=== PATIENT | female | born 1990 | race Caucasian/White ===

== ENCOUNTER 2017-07-10 20:55 | Emergency (ER) | payer BC, MEDICAID ==
[~2017-07-10] VITALS: Ht 152.4 cm; Wt 86.4 kg
[~2017-07-10 20:55] MED LIST: Docusate Sod/Senna PO; IBUP600 PO; PERC5TAB12 PO; PREN0.01 PO
[2017-07-10 20:59] VITALS: BP 149/84; PULSE 116; RESP 14; TEMP 99.4; O2SAT 99
[2017-07-10 23:31] LABS: BACTERIA, URINE RARE /hpf; BILIRUBIN, URINE NEG (NEG); BLOOD, URINE NEG (NEG); GLUCOSE,URINE NEG (NEG); KETONE, URINE NEG (NEG); NITRITE,URINE NEG (NEG); SQUAMOUS EPITHELIAL CELL URINE 3 /hpf (0-5); URINE COLOR LIGHT-YELLOW (YELLW/STRAW); URINE LEUKOCYTE ESTERASE NEG (NEG)
[2017-07-11] MEDS ORDERED: prenatal vitamin PO (01:38)
[2017-07-11 01:56] LABS: AUTOMATED NEUTROPHIL # 10.7 TH/MM3 (1.8-7.7); BASOPHIL % 0.2 % (0.0-2.0); EOSINOPHIL # 0.2 TH/MM3 (0-0.4); EOSINOPHIL % 1.4 % (0.0-4.0); HEMATOCRIT 42.8 % (35.0-46.0); HEMOGLOBIN 14.4 GM/DL (11.6-15.3); LYMPH % 26.5 % (9.0-44.0); LYMPHOCYTE # 4.3 TH/MM3 (1.0-4.8); MEAN CELL VOLUME 85.5 FL (80.0-100.0); MEAN CORPUSCULAR HEMOGLOBIN 28.8 PG (27.0-34.0); MEAN CORPUSCULAR HGB CONC 33.7 % (32.0-36.0); MEAN PLATELET VOLUME 8.1 FL (7.0-11.0); MONO % 6.6 % (0.0-8.0); MONOCYTE # 1.1 TH/MM3 (0-0.9); NEUT % 65.3 % (16.0-70.0); PLATELET COUNT 316 TH/MM3 (150-450); RED CELL DISTRIBUTION WIDTH 13.4 % (11.6-17.2); WHITE BLOOD COUNT 16.3 TH/MM3 (4.0-11.0)
[2017-07-11 02:37] LABS: BICARBONATE 24.4 MEQ/L (21.0-32.0); CALCIUM 8.8 MG/DL (8.5-10.1); CREATININE 0.76 MG/DL (0.50-1.00)
--- NOTE | 2017-07-11 04:13 | PD ---
HPI Chief Complaint: Related Problem Time Seen by Provider: 04:10 Travel History International Travel<30 days: No Contact w/Intl Traveler<30days: No Traveled to known affect area: No History of Present Illness HPI 27-year-old female presents to the emergency department for complaint of intermittent vaginal spotting. Patient reports that she is approximately 8 weeks . Last menstrual period was May 25, 2017. Patient has not followed up with an MOLD BUILDER. Patient is O+ blood type. Patient's had no dysuria frequency urgency hematuria flank pain or vaginal discharge. Patient states no current spotting. Patient is not passed any clots or tissue. Patient rates discomfort as mild to moderate present but currently is mild. Patient denies any fever chills nausea vomiting. Patient denies any injury or fall. Patient rates current discomfort 0/10 intensity. PFSH Past Medical History Narrative Medical Ab0, , O+, alpha thalassemia; nursing notes reviewed Medical History: Denies Significant Hx Cancer: No Cardiovascular Problems: No Diabetes: No Diminished Hearing: No Psychiatric: No Immunizations Current: Yes Seizures: No Thyroid Disease: No Ulcer: No Tetanus Vaccination: < 5 Years Influenza Vaccination: No ?: : 2 Para: 1 Past Surgical History Section: Yes Social History Alcohol Use: Yes (occ) Tobacco Use: No Substance Use: No Allergies-Medications (Allergen,Severity, Reaction): Coded Allergies: penicillin G (Unverified Allergy, Severe, HIVES, SWELLING, 01/15/17) Reported Meds & Prescriptions Reported Meds & Active Scripts Active Reported [ vitamin] 1 Tab PO DAILY Review of Systems Except as stated in HPI: all other systems reviewed are Neg HENT: No: Congestion Cardiovascular: No: Chest Pain or Discomfort Respiratory: No: Shortness of Breath Gastrointestinal: No: Nausea, Vomiting, Abdominal Pain Genitourinary: Positive: Pelvic Pain (mild intermittent), Vaginal Bleeding ( spotting), No: Dysuria, Discharge Musculoskeletal: No: Myalgias, Arthralgias Skin: No Rash Neurologic: No: Weakness, Dizziness, Syncope Psychiatric: No: Anxiety Hematologic/Lymphatic: No: Easy Bruising Physical Exam Narrative GENERAL: Well-developed well-nourished female in no acute distress no respiratory distress SKIN: Warm and dry. HEAD: Atraumatic. Normocephalic. EYES: Pupils equal and round. No scleral icterus. No injection or drainage. ENT: No nasal bleeding or discharge. Mucous membranes pink and moist. NECK: Trachea midline. No JVD. CARDIOVASCULAR: Regular rate and rhythm. RESPIRATORY: No accessory muscle use. Clear to auscultation. Breath sounds equal bilaterally. GASTROINTESTINAL: Abdomen soft, non-tender, nondistended. Hepatic and splenic margins not palpable. Pelvic exam: Normal external exam no induration no erythema no lesions; speculum exam no blood no clots no tissue cervical os is closed; bimanual exam no cervical motion tenderness os closed no adnexal mass or tenderness mild uterine enlargement. MUSCULOSKELETAL: Extremities without clubbing, cyanosis, or edema. No obvious deformities. NEUROLOGICAL: Awake and alert. No obvious cranial nerve deficits. Motor grossly within normal limits. Five out of 5 muscle strength in the arms and legs. Normal speech. PSYCHIATRIC: Appropriate mood and affect; insight and judgment normal. Data Data Last Documented VS Vital Signs Date Time Temp Pulse Resp B/P (MAP) Pulse Ox O2 Delivery O2 Flow Rate FiO2 07/11/17 04:30 94 16 121/74 (90) 98 Room Air 07/10/17 20:59 99.4 Orders Orders Beta Hcg (Quant/Titer) (07/10/17 21:08) Complete Blood Count With Diff (07/10/17 21:08) Basic Metabolic Panel (Bmp) (07/10/17 21:08) Urinalysis - C+S If Indicated (07/10/17 21:08) Ed Urine Pregnancytest Poc (07/10/17 21:08) Ed Discharge Order (07/11/17 04:10) Labs Laboratory Tests Test 07/10/17 23:00 07/11/17 01:40 07/11/17 02:10 Urine Color LIGHT-YELLOW Urine Turbidity CLEAR Urine pH 6.0 Urine Specific [place] 1.004 Urine Protein NEG mg/dL Urine Glucose (UA) NEG mg/dL Urine Ketones NEG mg/dL Urine Occult Blood NEG Urine Nitrite NEG Urine Bilirubin NEG Urine Urobilinogen LESS THAN 2.0 MG/DL Urine Leukocyte Esterase NEG Urine RBC 1 /hpf Urine WBC 1 /hpf Urine Squamous Epithelial Cells 3 /hpf Urine Bacteria RARE /hpf Microscopic Urinalysis Comment CULT NOT INDICATED White Blood Count 16.3 TH/MM3 Red Blood Count 5.00 MIL/MM3 Hemoglobin 14.4 GM/DL Hematocrit 42.8 % Mean Corpuscular Volume 85.5 FL Mean Corpuscular Hemoglobin 28.8 PG Mean Corpuscular Hemoglobin Concent 33.7 % Red Cell Distribution Width 13.4 % Platelet Count 316 TH/MM3 Mean Platelet Volume 8.1 FL Neutrophils (%) (Auto) 65.3 % Lymphocytes (%) (Auto) 26.5 % Monocytes (%) (Auto) 6.6 % Eosinophils (%) (Auto) 1.4 % Basophils (%) (Auto) 0.2 % Neutrophils # (Auto) 10.7 TH/MM3 Lymphocytes # (Auto) 4.3 TH/MM3 Monocytes # (Auto) 1.1 TH/MM3 Eosinophils # (Auto) 0.2 TH/MM3 Basophils # (Auto) 0.0 TH/MM3 CBC Comment DIFF FINAL Differential Comment Blood Urea Nitrogen 9 MG/DL Creatinine 0.76 MG/DL Random Glucose 104 MG/DL Calcium Level 8.8 MG/DL Sodium Level 139 MEQ/L Potassium Level 3.9 MEQ/L Chloride Level 107 MEQ/L Carbon Dioxide Level 24.4 MEQ/L Anion Gap 8 MEQ/L Estimat Glomerular Filtration Rate 93 ML/MIN Human Chorionic Gonadotropin, Quant 61695 MIU/ML MDM Medical Decision Making Medical Screen Exam Complete: Yes Emergency Medical Condition: Yes Medical Record Reviewed: Yes Interpretation(s) hcg; 82162 POC HCG: POSITIVE ua: GROSSLY WN CBC & BMP Diagram 07/11/17 01:40 07/11/17 02:10 Calcium Level 8.8 Vital Signs Date Time Temp Pulse Resp B/P (MAP) Pulse Ox O2 Delivery O2 Flow Rate FiO2 07/11/17 04:30 94 16 121/74 (90) 98 Room Air 07/10/17 20:59 99.4 116 14 149/84 (105) 99 Differential Diagnosis , ectopic , threatened AB, UTI, anemia Narrative Course Specimens collected and sent for resulting pelvic exam is nontender point-of- care hCG is positive Bedside ultrasound after informed verbal consent using a curvilinear probe and saddle transverse plane patient was identified to have single IUP with heart rate of 136 Urinalysis values found to be within normal range; hemoglobin stable Patient is asymptomatic in the emergency department stable for outpatient management is encouraged to follow-up with MOLD BUILDER take vitamins and recommend repeat quantitative hCG in 48 hours Diagnosis Primary Impression: Additional Impression: Threatened spontaneous Referrals: Tubing Machine Operator 2 days Patient Instructions: General Instructions Additional Instructions: Take vitamins Follow-up with welfare manager Repeat quantitative hormone level in 48 hours Return to the emergency department for any concerns or change in condition Increase fluid hydration May take acetaminophen/Tylenol for discomfort or fever 100.4F or greater Disposition: 01 DISCHARGE HOME Condition: Stable Neisha Retana MD Jul 11, 2017 04:13
[2017-07-11 04:30] VITALS: BP 121/74; PULSE 94; RESP 16; O2SAT 98
== END 2017-07-11 04:36 | disposition home or self-care (01) ==
LOC: NEPC 20:55
DX: O20.0 Threatened abortion (principal); Z3A.08 8 weeks gestation of pregnancy
CPT/HCPCS: 80048; 81001; 84702; 84703; 85025; 99283

== ENCOUNTER 2018-02-13 17:27 | Inpatient (IN) ==
--- NOTE | 2018-02-13 17:47 | MH ---
cc: Paul Grant MD DATE OF ADMISSION: 02/13/2018 DIAGNOSIS: at 38-39 weeks, decreased movement, polyhydramnios, previous . HISTORY OF PRESENT ILLNESS: The patient is a 27-year-old white female, para 1-0-0-1, LMP 05/16/2017 ,EDC of 02/21/2018. course has been benign. She had previous for failure to progress and distress. She is now admitted for repeat section due to decreased movement, increased fluid and previous at the recommendation of the maternal medicine specialist. ADDITIONAL PAST SURGICAL HISTORY: . MEDICATIONS: Vitamins. ALLERGIES: PENICILLIN. TRANSFUSIONS: None. PHYSICAL EXAMINATION: GENERAL: Well-developed white female. VITAL SIGNS: Stable. HEENT: Normal. CHEST: Clear. HEART: Regular rate. BREASTS: Symmetrical. ABDOMEN: Gravid. EFW 300 grams. PELVIC: Cervix closed. EXTREMITIES: Normal. ASSESSMENT: As above, she is now admitted for a repeat section. The risk and benefits and complications explained and accepted. Paul Grant MD JAW/sj , 05:11 PM , 05:16 PM
[2018-02-13] MEDS ORDERED: Citric Acid/Sodium Citrate Liq 30 ML UDC PO SCH (18:45)
[2018-02-13 19:00] LABS: Baso % (Auto) 0.3 % (0.0-2.0); Eos # (Auto) 0.1 th/mm3 (0.0-0.4); Eos % (Auto) 1.2 % (0.0-4.0); Hematocrit 33.3 % (35.0-46.0); Hemoglobin 10.6 gm/dL (11.6-15.3); Lymph # (Auto) 2.6 th/mm3 (1.0-4.8); Lymph % (Auto) 26.5 % (9.0-44.0); Mean Corpuscular HGB Conc 31.9 % (32.0-36.0); Mean Corpuscular Volume 84.6 fL (80.0-100.0); Mean Platelet Volume 9.2 fL (7.0-11.0); Mono # (Auto) 0.7 th/mm3 (0.0-0.9); Mono % (Auto) 6.8 % (0.0-8.0); Neut # (Auto) 6.3 th/mm3 (1.8-7.7); Neut % (Auto) 65.2 % (16.0-70.0); Platelet Count 292 th/mm3 (150-450); Red Blood Count 3.93 mil/mm3 (4.00-5.30); Red Cell Distribution Width 14.3 % (11.6-17.2); White Blood Count 9.7 th/mm3 (4.0-11.0)
[2018-02-13] MEDS ORDERED: Morphine Sulfate PF Inj 5 MG/10 ML Ampul ONE (19:06)
[2018-02-13] MEDS ORDERED: Clindamycin Inj 600 MG/4 ML Vial ONE (19:17)
[2018-02-13] MEDS ORDERED: Ketorolac Inj 30 MG/ML (IVP) Vial IV.PUSH ONE (19:30)
[2018-02-13] MEDS ORDERED: Clindamycin 600 mg/NS Premix 600 MG/50 ML PIGGYBACK IV.SIG SCH (19:30)
[2018-02-13] MEDS ORDERED: Phenylephrine/NS 1000 MCG/10ML Syringe IV.PUSH ONE (19:30)
[2018-02-13 19:36] LABS: Bacteria,Urine Moderate /hpf; Bilirubin,Urine Negative (Negative); Clarity,Urine Hazy (Clear); Color,Urine Amber (Yellw/Straw); Glucose,Urine (UA) Negative (Negative); Leukocyte Esterase,Urine Trace (Negative); Mucus,Urine Few /lpf (Occasional); Nitrite,Urine Negative (Negative); Specific Gravity,Urine 1.025 (1.002-1.035); Squamous Epithelial Cell,Urine 7 /hpf (0-5); Urobilinogen,Urine 4 or Greater mg/dL (Less than 2)
[2018-02-13 19:38] LABS: Amphetamine Screen,Urine Neg (Neg); Barbiturate Screen,Urine Neg (Neg); Cannabinoid Screen,Urine Neg (Neg); Cocaine Screen,Urine Neg (Neg)
[2018-02-13 19:45] LABS: Opiate Screen,Urine Neg (Neg)
[2018-02-13] MEDS ORDERED: Simethicone 80 MG Chew Tablet PO PRN (20:06)
[2018-02-13] MEDS ORDERED: Senna/Docusate Sodium 8.6/50 MG Tablet PO PRN (20:06)
[2018-02-13] MEDS ORDERED: Oxytocin 30 Units/500ml Premix 30 UNITS/500 ML BAG IV.SIG ONE (21:00)
[2018-02-13] MEDS ORDERED: Zolpidem Tartrate 5 MG Tablet PO PRN (21:00)
[2018-02-13] MEDS ORDERED: Ketorolac Inj 30 MG/ML (IVP) Vial IV.PUSH PRN (21:00)
--- NOTE | 2018-02-13 22:12 | MP ---
cc: Paul Grant MD DATE OF OPERATION: 02/13/2018 PREOPERATIVE DIAGNOSES: 1. at 38-39 weeks. 2. Previous section. 3. Polyhydramnios. 4. Decreased movement. POSTOPERATIVE DIAGNOSES: 1. at 38-39 weeks. 2. Previous section. 3. Polyhydramnios. 4. Decreased movement. 5. Delivered. PROCEDURE PERFORMED: Repeat low transverse section. ANESTHESIA: Spinal. SURGEON: Paul Grant MD POT PRESS OPERATOR: Tavon Franks. ESTIMATED BLOOD LOSS: 600 mL FLUIDS: 800 mL crystalloid. OBJECTIVE FINDINGS: Following induction of adequate spinal anesthesia, the patient was prepped and draped supine on the operating table in left lateral tilt position in usual sterile fashion, with the bladder being drained via Napier catheterization. The abdomen was opened through a Pfannenstiel incision using a knife to cut down through the skin to the fascia. The fascia opened transversely, stripped from the muscles, rectus muscle split in the midline and the peritoneum opened sharply without incident. The bladder flap was taken down sharply and retracted inferiorly with the Omari blade. The lower uterine segment incised transversely with a knife, extended with blunt dissection, with clear fluid. Baby was in LOT position. The vacuum extractor applied to the occiput and used to deliver the head through the abdominal wound. Mouth was suctioned. The cord clamped and cut and baby to the team. Vigorous female, Apgars 8 and 9, weight 6 pounds 14 ounces. Cord blood for typing. Placenta manually removed and uterine cavity cleaned with laps. Uterus was exteriorized and closed in 2 layers running suture. After wiping the cavity clean the wound was closed in 2 layers running suture, first with a running locking -0 Vicryl, second with running imbricating -0 Vicryl. Posterior inspection revealed normal uterus, tubes and ovaries, and pelvic cavity. IMPRESSION: No bleeding was evident and the bladder flap was closed with a running stitch of 3-0 Vicryl. All laps and retractors removed. Counts were correct. Anterior peritoneum closed with a running stitch of 2-0 Vicryl, the fascia closed with a running locking stitch of 3-0 Vicryl, corner to midline and tied, subcutaneous closed with 3-0 Vicryl and the skin with a running subcuticular 3-0 Monocryl. Dermabond applied. All counts were correct and the patient was awakened and taken to recovery in good condition. MD JENNI Williamson/rachel , 08:14 PM , 08:19 PM BRIAN
[2018-02-14] MEDS ORDERED: Oxytocin 30 Units/500ml Premix 30 UNITS/500 ML BAG IV.SIG PRN (01:06)
[2018-02-14] MEDS ORDERED: Naloxone Inj 0.4 MG/ML Vial IV.PUSH PRN (03:02)
[2018-02-14 08:28] LABS: Baso % (Auto) 0.4 % (0.0-2.0); Eos # (Auto) 0.1 th/mm3 (0.0-0.4); Eos % (Auto) 0.6 % (0.0-4.0); Hematocrit 29.6 % (35.0-46.0); Hemoglobin 9.4 gm/dL (11.6-15.3); Lymph # (Auto) 1.8 th/mm3 (1.0-4.8); Lymph % (Auto) 18.5 % (9.0-44.0); Mean Corpuscular HGB Conc 31.9 % (32.0-36.0); Mean Corpuscular Hemoglobin 27.2 pg (27.0-34.0); Mean Corpuscular Volume 85.2 fL (80.0-100.0); Mean Platelet Volume 8.7 fL (7.0-11.0); Mono # (Auto) 0.7 th/mm3 (0.0-0.9); Mono % (Auto) 7.7 % (0.0-8.0); Neut # (Auto) 6.9 th/mm3 (1.8-7.7); Neut % (Auto) 72.8 % (16.0-70.0); Platelet Count 219 th/mm3 (150-450); Red Blood Count 3.48 mil/mm3 (4.00-5.30); Red Cell Distribution Width 14.2 % (11.6-17.2); White Blood Count 9.5 th/mm3 (4.0-11.0)
[2018-02-14] MEDS ORDERED: Measles/Mumps/Rubella Vaccine Inj 0.5 ML Vial SQ ONE (16:00)
[2018-02-14] MEDS ORDERED: Diphtheria/Tetanus/Pertussis Vaccine Inj 0.5 ML Syringe IM ONE (16:00)
[2018-02-15 09:30] VITALS: BP 103/84; PULSE 86; RESP 20; TEMP 98
--- NOTE | 2018-02-16 00:07 | MD ---
cc: Paul Grant MD DATE OF DISCHARGE: 02/15/2018 ADMITTING DIAGNOSES: 1. at 38-39 weeks. 2. Polyhydramnios. 3. Previous section. 4. Decreased movement. DISCHARGE DIAGNOSES: 1. at 38-39 weeks. 2. Polyhydramnios. 3. Previous section. 4. Decreased movement. PROCEDURE: Repeat low transverse section on 02/13/2018. HISTORY OF PRESENT ILLNESS: A 27-year-old white female, para 1-0-0-1 had complaints of decreased movement in the week prior to delivery. Biophysical profiles were normal. Amniotic fluid was increased. HOSPITAL COURSE: Her biophysical was done the day of admission and the ROS specialist recommended to proceed with delivery. She was admitted on the evening of 02/13/2018, had spinal anesthesia, repeat section with delivery of a vigorous female, Apgars 8 and 9, weight 6 pounds 14 ounces. The baby's name is Gale Watson and she is bottle feeding. did extremely well, requested discharge on the second postoperative day. Her blood type is positive. Pre- and postop labs are normal. She was advised NPV, light activity, no driving, return to see me in 1 week. She will call for abnormal pain, bleeding, temperature, signs of infection and depression. She was given a prescription for Percocet 5, one to two p.o. every 4 hours, #30, after review of the [place] database. MD JENNI Williamson/topher , 10:34 AM , 10:39 AM
== END 2018-02-15 15:25 | disposition home or self-care (01) ==
LOC: H2E 17:27 → H1EA 21:25
PROVIDERS: ADMIT Obstetrics & Gynecology; ATTEND Obstetrics & Gynecology